=== PATIENT | male | born 1995 ===

== ENCOUNTER 2016-09-05 23:41 | Emergency (ER) | payer SELFPAY ==
[2016-09-05 23:51] VITALS: BP 131/61; PULSE 68; RESP 18; TEMP 98.6; O2SAT 99
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
[2016-09-06] MEDS ORDERED: Povidone Iodine Topical 10% Sol ONE (00:32)
[2016-09-06] MEDS ORDERED: Bacitracin Ointment 30 GM TUBE ONE (00:33)
[2016-09-06] MEDS ORDERED: Bacitracin OINT 15GM TOP STA (00:39)
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
== END 2016-09-06 02:44 | disposition home or self-care (01) ==
LOC: H.ER 23:41
DX: T14.8 Other injury of unspecified body region (principal); S20.219A Contusion of unspecified front wall of thorax, initial encounter; Y93.55 Activity, bike riding; Y92.410 Unspecified street and highway as the place of occurrence of the external cause; Z88.0 Allergy status to penicillin